=== PATIENT | female | born 1980 | race Caucasian/White ===

== ENCOUNTER 2018-09-26 13:52 | Emergency (ER) | payer OTHER ==
[~2018-09-26] VITALS: Ht 154.9 cm; Wt 81.4 kg
[~2018-09-26 13:52] MED LIST: CEPHALEXIN500 MG PO; CIPROFLOXACN500 MG PO; IBUPROFEN600 MG PO; IRON325 M1 PO; KEFLEX250 MG PO; KEFLEX500 MG PO; LORTAB 5/3255 MG PO; LORTAB 7.57.5 MG PO; LORTAB5 PO; ONDANSETRON4 MG PO; PRE-NATAL PO; PRILOSEC40 MG PO; RANITIDINE150 MG OR; VICODIN1 TAB PO; ZOFRAN ODT8 MG SL
[2018-09-26] MEDS ORDERED: HYDROCO/APAP1 TA9 PO (15:49)
[2018-09-26] MEDS ORDERED: MOTRIN400 MG PO (15:49)
[2018-09-26 16:01] VITALS: BP 138/75
== END 2018-09-26 16:15 | disposition home or self-care (01) ==
LOC: ED 13:52
DX: S82.61XA Displaced fracture of lateral malleolus of right fibula, initial encounter for closed fracture (principal); W01.0XXA Fall on same level from slipping, tripping and stumbling without subsequent striking against object, initial encounter; Y93.01 Activity, walking, marching and hiking; Y92.009 Unspecified place in unspecified non-institutional (private) residence as the place of occurrence of the external cause

== ENCOUNTER 2019-07-16 13:32 | Emergency (ER) | payer OTHER ==
[~2019-07-16] VITALS: Ht 152.4 cm; Wt 68.0 kg
[~2019-07-16 13:32] MED LIST changes: +HYDROCO/APAP1 TA9 PO; +MOTRIN400 MG PO
[2019-07-16 14:12] VITALS: BP 130/81
== END 2019-07-16 14:17 | disposition home or self-care (01) ==
LOC: ED 13:32
DX: Z48.02 Encounter for removal of sutures (principal)

== ENCOUNTER 2023-02-26 19:24 | Emergency (ER) | payer OTHER ==
[~2023-02-26] VITALS: Ht 154.9 cm; Wt 79.0 kg
[2023-02-26] MEDS ORDERED: PERCOCET 5/321 COMBO PO (19:57)
[2023-02-26] MEDS ORDERED: CLINDAMYCIN300 M1 PO (19:57)
[2023-02-26 20:09] VITALS: BP 128/70
== END 2023-02-26 20:12 | disposition home or self-care (01) ==
LOC: ED 19:24
DX: K02.9 Dental caries, unspecified (principal); K04.7 Periapical abscess without sinus

== ENCOUNTER 2023-10-20 09:17 | Emergency (ER) | payer OTHER ==
[~2023-10-20] VITALS: Ht 154.9 cm; Wt 74.8 kg
[~2023-10-20 09:17] MED LIST changes: +CLINDAMYCIN300 M1 PO; +PERCOCET 5/321 COMBO PO
[2023-10-20] MEDS ORDERED: AMOX/K CLAV875 M1 PO (09:35)
[2023-10-20] MEDS ORDERED: NAPROXEN500 MG PO (09:35)
[2023-10-20] MEDS ORDERED: METRONIDAZOLE500 MG PO (09:35)
[2023-10-20] MEDS ORDERED: ZOFRAN4 MG/TAB PO (09:35)
[2023-10-20 10:03] VITALS: BP 130/78
== END 2023-10-20 10:04 | disposition home or self-care (01) ==
LOC: ED 09:17
DX: K08.89 Other specified disorders of teeth and supporting structures (principal)

== ENCOUNTER 2024-09-30 17:55 | Emergency (ER) | payer OTHER ==
[~2024-09-30] VITALS: Ht 154.9 cm; Wt 92.0 kg
[~2024-09-30 17:55] MED LIST changes: +AMOX/K CLAV875 M1 PO; +METRONIDAZOLE500 MG PO; +NAPROXEN500 MG PO; +OFLOXACIN0.3 % OD; +ZOFRAN4 MG/TAB PO
[2024-09-30 18:52] VITALS: BP 145/81
[2024-09-30 19:00] VITALS: BP 129/86
[2024-09-30 19:16] VITALS: BP 138/79
[2024-09-30 20:29] VITALS: BP 129/86
== END 2024-09-30 20:30 | disposition home or self-care (01) ==
LOC: ED 17:55
DX: S02.2XXA Fracture of nasal bones, initial encounter for closed fracture (principal); W21.02XA Struck by soccer ball, initial encounter; Y93.66 Activity, soccer